=== PATIENT | female | born 1955 | race American Indian/Alaskan Native ===

== ENCOUNTER 2018-06-14 10:59 | Emergency (ER) | payer OTHER ==
[2018-06-14 11:19] VITALS: RESP 18; TEMP 98; BMI 27.1
--- NOTE | 2018-06-14 11:38 | ED PDOC ---
Arrival/HPI - General Chief Complaint: High Blood Pressure Time Seen by Provider: 06/14/18 11:28 Historian: Patient, Family - History of Present Illness Narrative History of Present Illness (Text): 06/14/18 11:38 63 year old female whose past medical history includes CVA, who presents to the Emergency Department with family member complaining of elevated BP and lower extremity edema. Patient complains of worsening bilateral lower extremity edema that has been ongoing for a month. She saw her PMD today for hypertension and edema evaluation, and her PMD instructed her to present to the Emergency Department. Patient admits that her swelling is alleviated when her lower extremity is elevated. She also notes associated redness and pain to her bilateral lower extremities. As per family member, patient took Metformin and Metoprolol earlier today. Of note patient has inconsistent medication use. She states experiencing shortness of breath. Family member has also noticed that patient experiences dyspnea on exertion, and states that this morning the patient appeared normal, but now appears forgetful. Patient's last bowel movement was yesterday. Patient denies fevers, chills, cough, chest pain, abdominal pain, nausea, vomiting, diarrhea, neck/back pain, urinary/bowel changes, headache, dizziness, vision changes, or any other complaint. PMD: Time/Duration: Other (1 month) Symptom Onset: Gradual Symptom Course: Worsening Context: Home Past Medical History - Provider Review Nursing Documentation Reviewed: Yes - Infectious Disease Hx of Infectious Diseases: None - Tetanus Immunization Tetanus Immunization: Unknown - Cardiac Hx Hypertension: Yes - Pulmonary Hx Respiratory Disorders: (smoker) Hx Respiratory Tract Infection: Yes - Neurological HX Cerebrovascular Accident: Yes (recent L thalamic bleed) - Renal Hx Renal Failure: No - Endocrine/Metabolic Hx Diabetes Mellitus Type 2: Yes - Hematological/Oncological Hx Blood Transfusions: No Hx Blood Transfusion Reaction: (N/A) - Musculoskeletal/Rheumatological Hx Musculoskeletal Disorders: No Hx Osteoporosis: Yes Other/Comment: Osteopenia - Gastrointestinal Hx Gastroesophageal Reflux: No - Psychiatric Hx Depression: No Hx Emotional Abuse: No Hx Physical Abuse: No Hx Substance Use: No - Surgical History Hx Hysterectomy: Yes Hx Tubal Ligation: Yes - Anesthesia Hx Anesthesia: Yes Hx Anesthesia Reactions: No Hx Malignant Hyperthermia: No - Suicidal Assessment Feels Threatened In Home Enviroment: No Family/Social History - Physician Review Nursing Documentation Reviewed: Yes Family/Social History: No Known Family HX Smoking Status: Heavy Smoker > 10 Cigarettes Daily Hx Alcohol Use: Yes Hx Substance Use: No Hx Substance Use Treatment: No Allergies/Home Meds Allergies/Adverse Reactions: Allergies No Known Allergies Allergy (Verified 06/14/18 11:19) Review of Systems - Physician Review All systems were reviewed & negative as marked: Yes - Review of Systems Constitutional: absent: Fevers, Night Sweats Eyes: absent: Vision Changes Respiratory: SOB. absent: Cough Cardiovascular: ELI. absent: Chest Pain Gastrointestinal: absent: Abdominal Pain, Diarrhea, Nausea, Vomiting Musculoskeletal: absent: Back Pain, Neck Pain Neurological: absent: Headache, Dizziness Physical Exam Vital Signs Reviewed: Yes Vital Signs Temp Pulse Resp BP Pulse Ox 06/14/18 11:15 98 F 77 18 190/96 H 98 Temperature: Afebrile Blood Pressure: Hypertensive Pulse: Regular Respiratory Rate: Normal Appearance: Positive for: Well-Appearing Mental Status: Positive for: Alert and Oriented X 3 - Systems Exam Head: Present: Atraumatic, Normocephalic Pupils: Present: PERRL Extroacular Muscles: Present: EOMI Conjunctiva: Present: Normal Mouth: Present: Moist Mucous Membranes Neck: Present: Normal Range of Motion Respiratory/Chest: Present: Clear to Auscultation, Good Air Exchange. No: Respiratory Distress, Accessory Muscle Use Cardiovascular: Present: Regular Rate and Rhythm, Normal S1, S2. No: Murmurs Abdomen: No: Tenderness, Distention, Peritoneal Signs Back: Present: Normal Inspection Upper Extremity: Present: Normal Inspection. No: Cyanosis, Edema Lower Extremity: Present: Normal Inspection, Edema (+2 bilateral pitting edema), NORMAL PULSES, Capillary Refill < 2 s Neurological: Present: GCS=15, CN II-XII Intact, Speech Normal Skin: Present: Warm, Dry, Normal Color. No: Rashes Psychiatric: Present: Alert, Oriented x 3, Normal Insight, Normal Concentration Medical Decision Making ED Course and Treatment: 06/14/18 11:38 Impression: 63 year old female complaining of elevated blood pressure and worsening bilateral lower extremity edema that has been ongoing for a month. Differential Diagnosis included but are not limited to: HTN urgency/emergency subarachnoid hemorrhage congestive heart failure exacerbation Sepsis Plan: -- Head CT without contrast -- EKG -- Trandate --Hydralazine -- Labs -- Urinalysis -- Reassess and disposition Prior Visits: Notes and results from previous visits were reviewed. Progress Notes: 06/14/18 13:49 Labs reviewed with troponin within normal limits and no outstanding chemistries. Blood pressure noted to be persistently elevated to 200/100 despite Labetolol. Hydralazine ordered. Called Dr. Pham(PCP) 06/14/18 14:[address] Pham who states he was unable to provide anti-hypertensives while patient was in office. He would like patient to have a script for Clonidine 0.5mg TID and outpatient follow up with him. Patient reevaluated and asymptomatic at this time. Hydralazine ordered. Pending repeat CBC due to hemolyzed labs. 06/14/18 14:30 Repeat CBC shows no outstanding values. Patient updated on information and provided with scripts. She remains asymptomatic at this time. Return protocol provided as well as encouragement to adhere to medication regimen. She demonstrates understanding and will follow up. She is stable for discharge. - Lab Interpretations I have reviewed the lab results: Yes - RAD Interpretation Narrative RAD Interpretations (Text): 06/14/18 13:[address] without contrast: Dictator : Ubaldo NogueiraPA FINDINGS: HEMORRHAGE: No intracranial hemorrhage. BRAIN: No mass effect or edema. No atrophy or chronic microvascular ischemic changes. VENTRICLES: Unremarkable. No hydrocephalus. CALVARIUM: Unremarkable. PARANASAL SINUSES: Unremarkable as visualized. No significant inflammatory changes. MASTOID AIR CELLS: Unremarkable as visualized. No inflammatory changes. OTHER FINDINGS: None. 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 No QT prolongation or ST elevation. Interpreted by me. Interpreted by ED Physician: Yes Type: 12 lead EKG - Scribe Statement The provider has reviewed the documentation as recorded by the Macy Mathis Provider Scribe Attestation: All medical record entries made by the Scribe were at my direction and personally dictated by me. I have reviewed the chart and agree that the record accurately reflects my personal performance of the history, physical exam, medical decision making, and the department course for this patient. I have also personally directed, reviewed, and agree with the discharge instructions and disposition. Disposition/Present on Arrival - Present on Arrival Any Indicators Present on Arrival: No History of DVT/PE: No History of Uncontrolled Diabetes: No Urinary Catheter: No History of Decub. Ulcer: No History Surgical Site Infection Following: None - Disposition Have Diagnosis and Disposition been Completed?: Yes Diagnosis: Hypertensive urgency Disposition: HOME/ ROUTINE Disposition Time: 14:57 Patient Plan: Discharge Condition: IMPROVED Discharge Instructions (ExitCare): High Blood Pressure (DC), High Blood Pressure Emergencies Prescriptions: cloNIDine [Catapres] 0.2 mg PO TID 1 Days #3 tab Referrals: Angel Pham DO [Family Provider] - Follow up with primary
[2018-06-14] MEDS ORDERED: Labetalol 5 mg/ml Inj 20ML IV STA (11:40)
[2018-06-14 12:42] LABS: PH,URINE 6.5 (4.7-8.0); URINE BILIRUBIN NEGATIVE (NEGATIVE); URINE BLOOD SMALL (NEGATIVE); URINE GLUCOSE (UA) NEGATIVE (NEGATIVE); URINE LEUKOCYTE ESTERASE TRACE Leu/uL (NEGATIVE); URINE PROTEIN NEGATIVE mg/dL (<30 mg/dL); URINE UROBILINOGEN 0.2 E.U./dL (<1 E.U./dL)
[2018-06-14 12:43] LABS: URINE APPEARANCE CLEAR (CLEAR); URINE COLOR YELLOW (YELLOW)
[2018-06-14 13:02] LABS: URINE BACTERIA MOD (NEG)
[2018-06-14 13:06] LABS: ALBUMIN 3.8 g/dL (3.0-4.8); BLOOD UREA NITROGEN 9 mg/dL (7-21); CALCIUM 9.1 mg/dL (8.4-10.5); GFR NON-AFRICAN AMERICAN > 60
[2018-06-14 13:07] LABS: ALB/GLOB RATIO 0.9 (1.1-1.8); ALT/SGPT 66 U/L (7-56); AST/SGOT 76 U/L (14-36)
[2018-06-14 13:18] LABS: B-TYPE NATRIURETIC PEPTIDE 186 pg/mL (0-450); TROPONIN I < 0.01 ng/mL
--- NOTE | 2018-06-14 13:42 | CT ---
Date of service: 06/14/2018 PROCEDURE: CT HEAD WITHOUT CONTRAST. HISTORY: elevated blood pressure w/ COMPARISON: None available. TECHNIQUE: Axial computed tomography images were obtained through the head/brain without intravenous contrast. Radiation dose: Total exam DLP = 922 mGy-cm. This CT exam was performed using one or more of the following dose reduction techniques: Automated exposure control, adjustment of the mA and/or kV according to patient size, and/or use of iterative reconstruction technique. FINDINGS: HEMORRHAGE: No intracranial hemorrhage. BRAIN: No mass effect or edema. No atrophy or chronic microvascular ischemic changes. VENTRICLES: Unremarkable. No hydrocephalus. CALVARIUM: Unremarkable. PARANASAL SINUSES: Unremarkable as visualized. No significant inflammatory changes. MASTOID AIR CELLS: Unremarkable as visualized. No inflammatory changes. OTHER FINDINGS: None. IMPRESSION: No acute findings
[2018-06-14 13:43] VITALS: O2SAT 100
[2018-06-14 14:26] VITALS: BP 177/96; PULSE 89
[2018-06-14 14:32] LABS: BASO # 0.01 K/mm3 (0.0-2.0); BASO % 0.1 % (0.0-3.0); EOS # 0.2 (0.0-0.7); GRAN # 3.79 (1.4-6.5); HEMOGLOBIN 11.2 g/dL (12.0-16.0); LYMPH # 2.7 (1.2-3.4); LYMPH % 37.4 % (22.0-35.0); MEAN CELL VOLUME 83.9 fl (80.0-105.0); MEAN CORPUSCULAR HEMOGLOBIN 26.9 pg (25.0-35.0); MEAN CORPUSCULAR HGB CONC 32.1 g/dl (31.0-37.0); MEAN PLATELET VOLUME 9.3 fl (7.0-11.0); MONO # 0.6 (0.1-0.6); MONO % 7.5 % (1.0-6.0); RBC 4.16 10^6/uL (3.5-6.1); RED CELL DISTRIBUTION WIDTH 13.2 % (11.5-14.5); WHITE BLOOD COUNT 7.3 10^3/ul (4.5-11.0)
[2018-06-14 14:42] LABS: INR 1.06; PARTIAL THROMBOPLASTIN TIME 34.7 Seconds (25.1-36.5); PROTHROMBIN TIME 12.2 SECONDS (9.4-12.5)
--- NOTE | 2018-06-14 17:50 | CARD ---
APPROVED REPORT Date of service: 06/14/2018 EKG Measurement Heart [id number] <Conclusion> Normal sinus rhythm Anterior infarct, age undetermined Abnormal ECG
== END 2018-06-14 15:20 | disposition home or self-care (01) ==
LOC: ED 10:59
DX: I16.0 Hypertensive urgency (principal); E11.9 Type 2 diabetes mellitus without complications; Z86.73 Personal history of transient ischemic attack (TIA), and cerebral infarction without residual deficits; F17.210 Nicotine dependence, cigarettes, uncomplicated
CPT/HCPCS: 70450; 80053; 81001; 83880; 84484; 85025; 85610; 85730; 87086; 93005; 96374; 99285; J0360